=== PATIENT | male | born 1990 | race Caucasian/White ===

== ENCOUNTER 2019-07-09 02:45 | Emergency (ER) | payer OTHER ==
[2019-07-09] MEDS ORDERED: Ondansetron 4 MG/2 ML SDV IVPUSH ONE (02:56)
[2019-07-09] MEDS ORDERED: Sodium Chloride 0.9% 1,000 ML IV SCH (03:00)
--- NOTE | 2019-07-09 03:02 | EDM.PDOC ---
ED HPI GENERAL MEDICAL PROBLEM - General Chief Complaint: General Stated Complaint: MEDICAL CLEARANCE Time Seen by Provider: 07/09/19 02:46 Source of Information: Reports: Patient, Police History Limitations: Reports: No Limitations - History of Present Illness INITIAL COMMENTS - FREE TEXT/NARRATIVE: This is a 28-year-old male. Apparently he was arrested this evening and when he was taken to skilled nursing he was coughing a lot and so they sent him to the ER for evaluation. The patient states that he has been having nausea and vomiting since . He has also been coughing sometimes productively. He does have a history of asthma and he uses an inhaler but he has been using it recently. He also states at home he is been having some chills and possibly fever that was not been documented. He was arrested this evening because of an altercation that he claims he was falsely blamed for. He states he feels generally weak and tired. He says he has only had 2 beers this evening. - Related Data Allergies Allergy/AdvReac Type Severity Reaction Status Date / Time No Known Allergies Allergy Verified 07/09/19 02:47 Home Meds: Home Meds Azithromycin [Zithromax] 250 mg PO DAILY #6 tab 07/09/19 [Rx] Social & Family History - Tobacco Use Smoking Status *Q: Current Every Day Smoker Years of Tobacco use: 8 Packs/Tins Daily: 0.5 - Recreational Drug Use Recreational Drug Use: No ED ROS GENERAL - Review of Systems Review Of Systems: See Below Constitutional: Reports: Fever, Chills, Malaise, Fatigue HEENT: Denies: Rhinitis, Throat Pain, Throat Swelling Respiratory: Reports: Shortness of Breath, Cough. Denies: Wheezing Cardiovascular: Denies: Chest Pain Endocrine: Reports: No Symptoms GI/Abdominal: Reports: Nausea, Vomiting. Denies: Abdominal Pain, Constipation, Diarrhea : Reports: No Symptoms Musculoskeletal: Reports: No Symptoms Skin: Reports: No Symptoms Neurological: Reports: No Symptoms Psychiatric: Reports: No Symptoms Hematologic/Lymphatic: Reports: No Symptoms ED EXAM, GENERAL - Physical Exam Exam: See Below Exam Limited By: No Limitations General Appearance: Alert, WD/WN, No Apparent Distress, Lethargic Eye Exam: Bilateral Eye: Normal Inspection Ears: Normal External Exam, Normal Canal, Normal TMs Nose: Normal Inspection Throat/Mouth: Normal Inspection, Normal Lips, Normal Oropharynx, Normal Voice, No Airway Compromise Head: Normocephalic Neck: Supple Respiratory/Chest: No Respiratory Distress, Lungs Clear, Normal Breath Sounds Cardiovascular: Regular Rate, Rhythm, No Murmur, Tachycardia GI/Abdominal: Soft, Non-Tender Back Exam: Full Range of Motion Extremities: Normal Inspection, Normal Range of Motion Neurological: Alert, Oriented Psychiatric: Normal Affect, Normal Mood, Flat Affect Skin Exam: Warm, Dry Course - Vital Signs Last Recorded V/S: Last Vital Signs Temp 99.1 F 07/09/19 04:04 Pulse 113 H 07/09/19 02:47 Resp 14 07/09/19 02:47 BP 153/96 H 07/09/19 02:47 Pulse Ox 96 07/09/19 02:47 - Orders/Labs/Meds Orders: Active Orders 24 hr Category Date Time Status Chest 2V [CR] Stat Exams 07/09/19 02:56 Taken Sodium Chloride 0.9% [Normal Saline] 1,000 ml Med 07/09/19 04:04 Active IV ONETIME Sodium Chloride 0.9% [Normal Saline] 1,000 ml Med 07/09/19 04:09 Active IV ONETIME Medication Orders Sodium Chloride (Normal Saline) 1,000 mls @ 1,000 mls/hr IV ONETIME ONE Stop: 07/09/19 05:03 Last Admin: 07/09/19 04:17 Dose: 1,000 mls/hr Sodium Chloride (Normal Saline) 1,000 mls @ 1,000 mls/hr IV ONETIME ONE Stop: 07/09/19 05:08 Last Admin: 07/09/19 04:10 Dose: Not Given Labs: Laboratory Tests 07/09/19 07/09/19 Range/Units 03:00 03:00 WBC 14.00 H (4.23-9.07) K/mm3 RBC 5.43 (4.63-6.08) M/mm3 Hgb 15.4 (13.7-17.5) gm/dl Hct 45.3 (40.1-51.0) % MCV 83.4 (79.0-92.2) fl MCH 28.4 (25.7-32.2) pg MCHC 34.0 (32.2-35.5) g/dl RDW Std Deviation 42.3 (35.1-43.9) fL Plt Count 448 H (163-337) K/mm3 MPV 9.8 (9.4-12.3) fl Neut % (Auto) 71.8 H (34.0-67.9) % Lymph % (Auto) 17.3 L (21.8-53.1) % [place] % (Auto) 8.4 (5.3-12.2) % Eos % (Auto) 1.7 (0.8-7.0) Baso % (Auto) 0.2 (0.1-1.2) % Neut # (Auto) 10.06 H (1.78-5.38) K/mm3 Lymph # (Auto) 2.42 (1.32-3.57) K/mm3 [place] # (Auto) 1.17 H (0.30-0.82) K/mm3 Eos # (Auto) 0.24 (0.04-0.54) K/mm3 Baso # (Auto) 0.03 (0.01-0.08) K/mm3 Manual Slide Review Abnormal smear Sodium 139 (136-145) mEq/L Potassium 4.0 (3.5-5.1) mEq/L Chloride 105 (98-107) mEq/L Carbon Dioxide 24 (21-32) mEq/L Anion Gap 14.0 (5-15) BUN 12 (7-18) mg/dL Creatinine 0.7 (0.7-1.3) mg/dL Est Cr Clr Drug Dosing TNP Estimated GFR (MDRD) > 60 (>60) mL/min BUN/Creatinine Ratio 17.1 (14-18) Glucose 121 H (74-106) mg/dL Calcium 9.0 (8.5-10.1) mg/dL Total Bilirubin 0.2 (0.2-1.0) mg/dL AST 14 L (15-37) U/L ALT 34 (16-63) U/L Alkaline Phosphatase 138 H (46-116) U/L Total Protein 8.2 (6.4-8.2) g/dl Albumin 3.8 (3.4-5.0) g/dl Globulin 4.4 gm/dL Albumin/Globulin Ratio 0.9 L (1-2) Ethyl Alcohol 0.10 (0.00) gm% Meds: Medications Generic Name Dose Route Start Last Admin Trade Name Freq PRN Reason Stop Dose Admin Sodium Chloride 1,000 mls @ 1,000 mls/hr 07/09/19 04:04 07/09/19 04:17 Normal Saline IV 07/09/19 05:03 1,000 mls/hr ONETIME ONE Administration Sodium Chloride 1,000 mls @ 1,000 mls/hr 07/09/19 04:09 07/09/19 04:10 Normal Saline IV 07/09/19 05:08 Not Given ONETIME ONE Discontinued Medications Generic Name Dose Route Start Last Admin Trade Name Freq PRN Reason Stop Dose Admin Sodium Chloride 1,000 mls @ 1,000 mls/hr 07/09/19 03:00 07/09/19 03:05 Normal Saline IV 1,000 mls/hr ASDIRECTED DANIEL Administration Ondansetron HCl 4 mg 07/09/19 02:56 07/09/19 03:05 Zofran IVPUSH 07/09/19 02:57 4 mg ONETIME ONE Administration - Radiology Interpretation Free Text/Narrative:: Chest x-ray shows right hilar fullness that could be a peribronchial pneumonia but I do not see any other suggestion of infiltrates. - Re-Assessments/Exams Free Text/Narrative Re-Assessment/Exam: 07/09/19 04:14 The patient received a liter of fluids thus far he still feels somewhat weak and tired and fatigued. His blood pressure and vital signs and good his temperature is 99.3. His x-ray shows right hilar fullness but I'm not sure doesn 't appear to have any sort of infiltrates. I'm not certain what the right hilar fullness is suggesting at this time since I do not see evidence of infection. 07/09/19 05:03 I spoke to the [facility] regarding the patient. He needs to be isolated away from the general population and wear a surgical mask. I explained he does not have the flu but I do believe he's got bronchitis and viral syndrome and that if he seems to worsen for what ever reason send him back to the ER. I also indicated I gave him a prescription that can be filled tomorrow and he can start taking it tomorrow. They can give him some Tylenol or ibuprofen if needed for the aches and pains and if he develops a low-grade fever. Departure - Departure Time of Disposition: :49 Disposition: Home, Self-Care 01 Condition: Fair Clinical Impression: Viral syndrome Acute bronchitis Qualifiers: Bronchitis organism: unspecified organism Qualified Code(s): J20.9 - Acute bronchitis, unspecified - Discharge Information *PRESCRIPTION DRUG MONITORING PROGRAM REVIEWED*: Not Applicable *COPY OF PRESCRIPTION DRUG MONITORING REPORT IN PATIENT SHAW: Not Applicable Prescriptions: Azithromycin [Zithromax] 250 mg PO DAILY #6 tab Instructions: Acute Bronchitis, Adult, [id number] Referrals: PCP,None [Primary Care Provider] - Forms: ED Department Discharge Additional Instructions: Get the antibiotics as soon as possible and start taking them, you might consider using your inhaler if you develop any wheezing, take Tylenol or ibuprofen as needed for the low-grade fever and the body aches, follow up with your family doctor later this week for recheck or return to the ER if needed After observing in the ER for over 2 hours the patient remained stable though he is not feeling well, I do not anticipate there'll be a deterioration of his condition in skilled nursing but if there is return to the ER immediately - My Orders Last 24 Hours: My Active Orders 07/09/19 02:56 Chest 2V [CR] Stat 07/09/19 04:04 Sodium Chloride 0.9% [Normal Saline] 1,000 ml IV ONETIME 07/09/19 04:09 Sodium Chloride 0.9% [Normal Saline] 1,000 ml IV ONETIME - Assessment/Plan Last 24 Hours: My Active Orders 07/09/19 02:56 Chest 2V [CR] Stat 07/09/19 04:04 Sodium Chloride 0.9% [Normal Saline] 1,000 ml IV ONETIME 07/09/19 04:09 Sodium Chloride 0.9% [Normal Saline] 1,000 ml IV ONETIME
[2019-07-09] MEDS ORDERED: Sodium Chloride 0.9% 1,000 ML IV ONE ×2 (04:04→04:09)
--- NOTE | 2019-07-09 10:05 | CR ---
Chest: 2 views of the chest were obtained. Comparison: No prior chest x-ray. Heart size and mediastinum are normal. Lungs are clear. Bony structures appear within normal limits. Impression: 1. Nothing acute is appreciated on 2 view chest x-ray. Diagnostic code #1
== END 2019-07-09 04:57 | disposition home or self-care (01) ==
LOC: JD.ED 02:45
DX: B34.9 Viral infection, unspecified (principal); J20.9 Acute bronchitis, unspecified; J45.909 Unspecified asthma, uncomplicated; F17.210 Nicotine dependence, cigarettes, uncomplicated
CPT/HCPCS: 36415; 71046; 80053; 80320; 85025; 87804; 96361; 96374; 99283; J2405; J7040; G0480